=== PATIENT | male | born 1960 | race Caucasian/White ===

== ENCOUNTER 2020-10-13 08:33 | Outpatient (RCR) | payer OTHER, SELFPAY ==
[2015-09-23 19:58] VITALS: BMI 34.4
== END 2020-12-06 23:59 ==
LOC: IMMUN 08:33
PROVIDERS: PCP Internal Medicine; Referring Provider Family Medicine; Visit Provider Family Medicine
DX: Z23 Encounter for immunization (principal)
CPT/HCPCS: 0001A; 0002A; 91300